=== PATIENT | male | born 1980 | race Caucasian/White ===

== ENCOUNTER 2025-02-28 18:43 | Inpatient (IN) | payer BC, OTHER ==
[~2025-02-28] VITALS: Ht 190.5 cm; Wt 107.2 kg
--- NOTE | 2025-02-28 19:26 | ED.PDOC ---
General HPI Comments 44 y/o M presents with c/o right testicular swelling and pain, urine retention, and lightheadedness. Patient reports history of right testicular cancer and receiving a partial orchidectomy by urologist, Alejandro Kaur MD, at around 1300, this afternoon. He then endorses on developing symptoms at around 1500 and was advised to come to the ED for admission. Patient denies having any hematuria, left testicular swelling or pain, dizziness, or further associated symptoms. Chief Complaint: Testicle Pain Time Seen by MD: 19:00 Primary Care Provider: UNKNOWN (Jirafe S-RISK) Reviewed notes: Nurses Notes, Medications, Allergies Allergies: Coded Allergies: NO KNOWN ALLERGIES (Unverified , 02/28/25) Home Meds Reported Medications Hydrocodone-Acetaminophen (Hydrocodone Bitartrate/AC 5-325 mg) 1 Tab Tab, 1 TAB PO, TAB 03/01/25 Meloxicam (Meloxicam) 7.5 Mg Tab, 1 TAB PO DAILY, #30 TAB 1 Refill 03/01/25 Information Source: Patient Mode of Arrival: Ambulatory Severity: Moderate Timing: Hours Duration: Since onset Prehospital treatment: None Onset: Other (post partial orchidectomy) Review of Systems: REVIEW OF SYSTEMS: No fever, no chills, or fatigue HEENT: No sore throat, no earache, no congestion, no neck pain. Cardiac: Lightheadedness. No chest pain. No palpitations. Lungs: No shortness of breath, no cough. GI: No nausea, no vomiting, no diarrhea, no constipation, no abdominal pain : Right testicular pain and swelling. Urine retention. No dysuria, frequency, or urgency. No hematuria. Musculoskeletal: No joint pain , no joint swelling, no extremity edema. Skin: No rash, no itching. Neuro: No headache, no dizziness, no weakness Vital Signs Vital Signs Date Time Temp Pulse Resp B/P (MAP) Pulse Ox O2 Delivery O2 Flow Rate FiO2 02/28/25 20:59 97 16 98/60 (73) 95 02/28/25 19:30 97.9 97.9 02/28/25 19:30 Room Air* 0 21 Physical Exam General: Awake, alert and oriented. No acute distress. Skin: Skin in warm, dry and intact. Appropriate color for ethnicity. HEENT: The head is normocephalic and atraumatic. Conjunctivae are clear without exudates or hemorrhage. Sclera is non-icteric. EOM are intact. No signs of nystagmus. Eyelids are normal in appearance without swelling or lesions. Oral mucosa is pink and moist Neck: The neck is supple with normal range of motion. No JVD. Cardiac: Heart rate and rhythm are normal. No murmurs, gallops, or rubs are auscultated. Respiratory: No signs of respiratory distress. Lung sounds are clear in all lobes bilaterally without rales, rhonchi, or wheezes. Abdominal: Abdomen is soft, non-tender without distention, guarding or rigidity. Bowel sounds are present and normoactive in all four quadrants. Genitourinary: Scrotum is enlarged, swollen, with hematoma. Extremities: Upper and lower extremities are atraumatic in appearance without deformity or edema. Neurological: The patient is awake, alert and oriented to person, place, and time with normal speech. Speech is clear. There is no facial asymmetry. Psychiatric: Appropriate mood and affect. Good judgement and insight. Past Medical History PAST MEDICAL HISTORY: Cancer (right testicular cancer ) Surgical History (Other): partial orchidectomy Family History Family History: Unknown Social History Smoker: Non-Smoker Alcohol: Rarely Drugs: Denies Drug Use Lives In: Home Was a procedure done? Was a procedure done?: No Differential Diagnosis Kidney stone (Female): N/A Kidney stone (Male): N/A Penile/Scrotal: Epidiymitis, Foreign Body, Phimosis, Hydrocele, Testicular Torsion, Urolithiasis, Urinary Retention, Other (Post-op complication ) Urinary Problem (Male): N/A Urinary Problem (Female): N/A X-Ray, Labs, Meds, VS Vital Signs Date Time Temp Pulse Resp B/P (MAP) Pulse Ox O2 Delivery O2 Flow Rate FiO2 02/28/25 20:59 97 16 98/60 (73) 95 02/28/25 20:24 95 16 98/60 02/28/25 19:54 97 16 142/118 02/28/25 19:30 97.9 97 16 142/118 (126) 97 97.9 02/28/25 19:30 Room Air* 0 21 02/28/25 19:03 97.9 113 19 100/62 (75) 95 97.9 Lab Test 02/28/25 19:20 Range/Units White Blood Count 21.9 H 4.4-10.8 10^3/uL Red Blood Count 4.35 L 4.5-5.90 10^6/uL Hemoglobin 13.2 L 13.5-17.5 g/dL Hematocrit 39.8 L 41.0-53.0 % Mean Corpuscular Volume 91.7 80.0-100.0 fL Mean Corpuscular Hemoglobin 30.3 28.0-32.0 pg Mean Corpuscular Hemoglobin Concent 33.1 32.0-36.0 g/dL Red Cell Distribution Width 12.8 11.8-14.3 % Platelet Count 338 140-450 10^3/uL Mean Platelet Volume 8.9 6.9-10.8 fL Neutrophils (%) (Auto) 78.6 37.0-80.0 % Lymphocytes (%) (Auto) 12.7 10.0-50.0 % Monocytes (%) (Auto) 7.5 0.0-12.0 % Eosinophils (%) (Auto) 1.0 0.0-7.0 % Basophils (%) (Auto) 0.2 0.0-2.0 % Neutrophils # (Auto) 17.2 H 1.6-8.6 10 ^3/uL Lymphocytes # (Auto) 2.8 0.4-5.4 10 ^3/uL Monocytes # (Auto) 1.7 H 0-1.3 10 ^3/uL Eosinophils # (Auto) 0.2 0-0.8 10 ^3/uL Basophils # (Auto) 0.1 0-0.2 10 ^3/uL Nucleated Red Blood Cells 0.0 % Sodium Level 141 136-145 mmol/L Potassium Level 4.0 3.5-5.1 mmol/L Chloride Level 107 98-107 mmol/L Carbon Dioxide Level 25 20-31 mmol/L Anion Gap 9 5-15 Blood Urea Nitrogen 22 9-23 mg/dL Creatinine 1.24 0.700-1.30 mg/dL Glomerular Filtration Rate Calc 73 >90 mL/min BUN/Creatinine Ratio 17.7 10.0-20.0 Serum Glucose 159 H 74-106 mg/dL Calcium Level 8.8 8.7-10.4 mg/dL Current Medications Medications (Trade) Dose Ordered Sig/Bee Route Start Time Stop Time Status Last Admin Morphine Sulfate 4 mg ONCE ONCE IV 02/28/25 19:15 02/28/25 19:16 DC 02/28/25 19:54 Ondansetron HCl (Zofran) 4 mg ONCE ONCE IV 02/28/25 19:15 02/28/25 19:16 DC 02/28/25 19:55 Sodium Chloride 1,000 ml @ 1,000 mls/hr Q1H ONCE IV 02/28/25 19:30 02/28/25 20:29 DC 02/28/25 19:39 Time of 1ST Reevaluation: 19:30 Reevaluation 1ST: Unchanged Patient Education/Counseling: Other (Need for admission ) Family Education/Counseling: No Family Present SEPSIS Sepsis Screen Physician Orders Urinalysis (02/28/25 19:07) Obtain Consent For: (02/28/25 20:26) Obtain Consent For Anesthesia (02/28/25 20:26) Oxygen By Face Mask (02/28/25 21:18) Cover Remover (02/28/25 21:18) Notify Anesth. For Changes: (02/28/25 21:18) Pulse Ox Assessment (02/28/25 21:18) Bear Hugger For Temp <94.5f (02/28/25 21:18) May Have Head Of Bed Up (02/28/25 21:18) Follow Iv With Surgeon Orders (02/28/25 21:18) Discharge To Room Per Criteria (02/28/25 21:18) Vital Signs Date Time Temp Pulse Resp B/P (MAP) Pulse Ox O2 Delivery O2 Flow Rate FiO2 02/28/25 20:59 97 16 98/60 (73) 95 02/28/25 20:24 95 16 98/60 02/28/25 19:54 97 16 142/118 02/28/25 19:30 97.9 97 16 142/118 (126) 97 97.9 02/28/25 19:30 Room Air* 0 21 02/28/25 19:03 97.9 113 19 100/62 (75) 95 97.9 Laboratory Tests Test 02/28/25 19:20 White Blood Count 21.9 10^3/uL (4.4-10.8) H Medications Medications Dose Ordered Sig/Bee Route Start Time Stop Time Status Last Admin Dose Admin Cefazolin Sodium 1 gm STK-MED ONCE .ROUTE 02/28/25 21:30 02/28/25 21:29 DC 02/28/25 22:09 Cefazolin Sodium/ Dextrose 50 ml @ ud STK-MED ONCE IV 02/28/25 21:28 02/28/25 21:26 DC 02/28/25 21:36 Lidocaine/ Epinephrine 20 ml STK-MED ONCE .ROUTE 02/28/25 21:01 02/28/25 20:59 DC 02/28/25 21:55 Morphine Sulfate 4 mg ONCE ONCE IV 02/28/25 19:15 02/28/25 19:16 DC 02/28/25 19:54 Ondansetron HCl 4 mg ONCE ONCE IV 02/28/25 19:15 02/28/25 19:16 DC 02/28/25 19:55 Sodium Chloride 1,000 ml @ 1,000 mls/hr Q1H ONCE IV 02/28/25 19:30 02/28/25 20:29 DC 02/28/25 19:39 Departure 1 Departure Time of Disposition: 20:34 Impression: Primary Impression: Postoperative complication Disposition: ADMITTED INPATIENT Condition: Stable Comments 44-year-old male with hematoma postop. Case was discussed with Dr. Kaur, plans to take patient to OR tonight. Extensive evaluation was performed in attempt to identify or rule out: (See differential diagnosis section) The following tests were ordered, and results were reviewed by me and discussed with patient: (See diagnostic results section) The following test were independently interpreted by me: N/A I reviewed and agreed with the following test results read by other providers: N/A I reviewed the following notes from the pt's past medical encounters: November 07, 2011 for left ankle bimalleolar fracture Additional information was gathered from interviewing the following independent historians: N/A Discussion of management or test interpretation with external physician/other qualified health home health care worker: Dr. Kaur Addressed an acute or chronic illness that poses a threat to life or bodily function: Expanding hematoma Decision regarding hospitalization or escalation of hospital level of care: Risk and benefits of admission for further treatment of patient's condition was considered. Due to patient's current clinical condition, high risk of decline and poor outcome if discharged and need for further inpatient management and monitoring, patient will be admitted to the hospital. Drug therapy requiring intensive monitoring for toxicity: N/A Parenteral controlled substances: IV morphine Decision regarding elective major surgery with identified patient or procedure risk factors: N/A Decision regarding emergency major surgery: N/A Decision not to resuscitate or to de-escalate care because of poor prognosis: N/A Diagnosis or treatment significantly limited by social determinants of health: N/A Critical Care Note Critical Care Time?: No Stability Stability form required: No Heart Score Heart Score: Heart Score Response (Comments) Value History N/A 0 EKG N/A 0 Age N/A 0 Risk Factors N/A 0 Troponin N/A 0 Total 0 I personally scribed for KELLY BALDERRAMA MD ([email or web address]) on 02/28/25 at 19:26. Electronically submitted by Yayo Lan ([email or web address]). I personally scribed for KELLY BALDERRAMA MD ([email or web address]) on 02/28/25 at 19:59. Electronically submitted by Yayo Lan ([email or web address]). KELLY BALDERRAMA MD Feb 28, 2025 19:26
[2025-02-28] MEDS: SODIUM CHLORIDE 0.9% 1,000 ML IV ONE (19:39)
[2025-02-28 19:43] LABS: Basophils # (auto) 0.1 10 ^3/uL (0-0.2); Basophils % (auto) 0.2 % (0.0-2.0); Eosinophils # (auto) 0.2 10 ^3/uL (0-0.8); Hematocrit 39.8 % (41.0-53.0); Hemoglobin 13.2 g/dL (13.5-17.5); Lymphocytes # (auto) 2.8 10 ^3/uL (0.4-5.4); Lymphocytes % (auto) 12.7 % (10.0-50.0); Mean Corpuscular Hemoglobin 30.3 pg (28.0-32.0); Mean Corpuscular Hgb Conc. 33.1 g/dL (32.0-36.0); Mean Corpuscular Volume 91.7 fL (80.0-100.0); Monocytes # (auto) 1.7 10 ^3/uL (0-1.3); Monocytes % (auto) 7.5 % (0.0-12.0); Neutrophils # (auto) 17.2 10 ^3/uL (1.6-8.6); Neutrophils % (auto) 78.6 % (37.0-80.0); Platelet Count (auto) 338 10^3/uL (140-450); Red Blood Cells 4.35 10^6/uL (4.5-5.90); Red Cell Distribution Width 12.8 % (11.8-14.3); White Blood Cell 21.9 10^3/uL (4.4-10.8)
[2025-02-28 19:45] LABS: Chloride 107 mmol/L (98-107); Sodium 141 mmol/L (136-145)
[2025-02-28 19:46] LABS: Anion Gap 9 (5-15); Calcium 8.8 mg/dL (8.7-10.4); Carbon Dioxide 25 mmol/L (20-31)
[2025-02-28 19:51] LABS: BUN/Creatinine Ratio 17.7 (10.0-20.0); Blood Urea Nitrogen 22 mg/dL (9-23)
[2025-02-28] MEDS: MORPHINE SULFATE INJ 2 MG/ml SYRG IV ONE (19:54)
[2025-02-28] MEDS: ONDANSETRON HCL 4 MG/2 ML VIAL IV ONE (19:55)
[2025-02-28 19:56] LABS: Glucose 159 mg/dL (74-106)
[2025-02-28] MEDS: BACITRACIN TOP OINT 1 UD PKG TOP ONE (21:01)
[2025-02-28] MEDS: SUCCINYLCHOLINE CHLORIDE 20 MG/ML 10ML VIAL IV ONE (21:01)
[2025-02-28] MEDS ORDERED: PROPOFOL 10 MG/ML 20 ML IV ONE (21:10)
[2025-02-28] MEDS ORDERED: SODIUM CHLORIDE LOCK 10 ML ONE (21:10)
[2025-02-28] MEDS ORDERED: ONDANSETRON HCL 4 MG/2 ML VIAL ONE (21:10)
[2025-02-28] MEDS ORDERED: KETAMINE 50mg/ML 1ml syringe ONE (21:10)
[2025-02-28] MEDS ORDERED: ROCURONIUM 10MG/ML 10ML VIAL IV ONE (21:10)
[2025-02-28] MEDS ORDERED: MIDAZOLAM HCL 2MG/2ML 2ml VIAL (1mg/ml) ONE (21:10)
[2025-02-28] MEDS ORDERED: fentaNYL CITRATE 100 MCG/2 ML VL ONE (21:10)
[2025-02-28] MEDS ORDERED: LIDOCAINE 1% INJ PF 5ML AMP ONE (21:10)
[2025-02-28] MEDS ORDERED: LIDOCAINE HCL 2% TOP JELLY 5ML TOP ONE (21:10)
--- NOTE | 2025-02-28 21:16 | DVHINCON2 ---
Date of service: Feb 28, 2025 Reason for Consultation Right scrotal hematoma History of Present Illness Patient underwent right radical orchiectomy earlier today at [facility] outpatient surgery. He went home approximately 1:00 pm and began to notice his scrotum was getting enlarged. By 6:00 p.m. the enlargement with so severe he had called the answering service. Patient was instructed to come into the emergency room at [facility] so that he may undergo surgical exploration with evacuation of hematoma and hemostasis tonight urgently. His labs and vitals are stable. Past Surgical History Right radical orchiectomy earlier today at [facility] [place], [place] Allergies: Coded Allergies: NO KNOWN ALLERGIES (Unverified , 02/28/25) Review of Systems Massive right scrotal edema/hematoma and swelling Vital Signs Vital Signs Date Time Temp Pulse Resp B/P (MAP) Pulse Ox O2 Delivery O2 Flow Rate FiO2 02/28/25 20:59 97 16 98/60 (73) 95 02/28/25 19:30 97.9 97.9 02/28/25 19:30 Room Air* 0 21 Physical Exam Massive right scrotal edema/hematoma and ecchymosis noted Labs/Diagnostic Data Labs Test 02/28/25 19:20 Range/Units White Blood Count 21.9 H 4.4-10.8 10^3/uL Red Blood Count 4.35 L 4.5-5.90 10^6/uL Hemoglobin 13.2 L 13.5-17.5 g/dL Hematocrit 39.8 L 41.0-53.0 % Mean Corpuscular Volume 91.7 80.0-100.0 fL Mean Corpuscular Hemoglobin 30.3 28.0-32.0 pg Mean Corpuscular Hemoglobin Concent 33.1 32.0-36.0 g/dL Red Cell Distribution Width 12.8 11.8-14.3 % Platelet Count 338 140-450 10^3/uL Mean Platelet Volume 8.9 6.9-10.8 fL Neutrophils (%) (Auto) 78.6 37.0-80.0 % Lymphocytes (%) (Auto) 12.7 10.0-50.0 % Monocytes (%) (Auto) 7.5 0.0-12.0 % Eosinophils (%) (Auto) 1.0 0.0-7.0 % Basophils (%) (Auto) 0.2 0.0-2.0 % Neutrophils # (Auto) 17.2 H 1.6-8.6 10 ^3/uL Lymphocytes # (Auto) 2.8 0.4-5.4 10 ^3/uL Monocytes # (Auto) 1.7 H 0-1.3 10 ^3/uL Eosinophils # (Auto) 0.2 0-0.8 10 ^3/uL Basophils # (Auto) 0.1 0-0.2 10 ^3/uL Nucleated Red Blood Cells 0.0 % Sodium Level 141 136-145 mmol/L Potassium Level 4.0 3.5-5.1 mmol/L Chloride Level 107 98-107 mmol/L Carbon Dioxide Level 25 20-31 mmol/L Anion Gap 9 5-15 Blood Urea Nitrogen 22 9-23 mg/dL Creatinine 1.24 0.700-1.30 mg/dL Glomerular Filtration Rate Calc 73 >90 mL/min BUN/Creatinine Ratio 17.7 10.0-20.0 Serum Glucose 159 H 74-106 mg/dL Calcium Level 8.8 8.7-10.4 mg/dL Assessment Right scrotal hematoma, surgical complication Plan/Recommendation Right scrotal exploration with hematoma evacuation and hemostasis Plan discussed with: Patient, Spouse DONNA VALLADARES MD Feb 28, 2025 21:16
[2025-02-28] MEDS ORDERED: MORPHINE SULFATE INJ 2 MG/ml SYRG IV PRN ×3 (21:30→23:00)
[2025-02-28] MEDS: KETOROLAC TROMETH 30 MG/ML 1ML VIAL IV ONE (21:30)
[2025-02-28] MEDS: METOCLOPRAMIDE HCL 5MG/ml INJ 2ml VIAL IV ONE (21:30)
[2025-02-28] MEDS ORDERED: HYDROmorphone HCL 2 MG/ML VL/or syr ONE (21:30)
[2025-02-28] MEDS ORDERED: HYDROmorphone HCL 2 MG/ML VL/or syr IV PRN ×2 (21:30)
[2025-02-28] MEDS ORDERED: MORPHINE SULFATE 4 MG/ML SYR/VIAL IV PRN (21:30)
[2025-02-28] MEDS: ceFAZolin 2 GM/D5W50ml 50 ML IV ONE (21:36)
[2025-02-28] MEDS ORDERED: NITROGLYCERIN 0.4 MG SL TAB SL PRN (21:45)
[2025-02-28] MEDS: LIDOCAINE W/ EPINEPHRINE 1% 20ML VIAL ONE (21:55)
[2025-02-28] MEDS: ceFAZolin 1GM VL ONE (22:09)
[2025-02-28 22:51] VITALS: PULSE 131; RESP 19; O2SAT 100
--- NOTE | 2025-02-28 23:03 | DVHNC2 ---
Procedure - OPERATIVE REPORT Pre-op. Diagnosis: large right scrotal hematoma status post right radical orchiectomy Post-op. Diagnosis: Same as pre-op diagnosis Operation: right scrotal exploration with hematoma evacuation and hemostasis with YUNIER drain placement Anesthesia: general by Dr. Melendez Indications: The patient is a 44-year-old male with right testicular mass. He underwent right radical orchiectomy at [facility] outpatient surgery earlier today. He presented to the ER with massive right hematoma and scrotal swelling, complication from earlier surgery. The indications, risks, alternatives and benefits of right scrotal exploration with hematoma evacuation and hemostasis I discussed with the patient and family. All questions were encouraged and answered and he elected to proceed Details of Procedure: Patient was taken to the operating room and underwent general anesthesia in the supine position. Area of the genitalia was widely prepped and draped in usual sterile manner. Gaona catheter was inserted. The right inguinal incision was opened by removing the kenneth and incising into the inguinal canal. The spermatic cord bundles were intact and there was no bleeding from the stump. Large blood clots were evacuated from the scrotum through the inguinal canal. A 2nd right herlinda scrotal incision was made to access the scrotal space. Irrigation with antibiotic solutionwas used to wash away the blood clots. a Guy-Solis d rain was placed and tip was exited through the dependent position of the scrotum. The inguinal incision was closed again in three layers with reapproximation of Louis's using chromic sutures. The skin was closed with kenneth The scrotal incision was also closed with 3-0 chromic sutures in interrupted manner. The Guy prep drain was placed to bulb suction. Patient was awakened and taken to recovery room in stable condition Specimens: large blood clots Complications: Findings: YUNIER drain was placed and placed to bulb suction Notes: This procedure was performed as a management for the complication of postope rative bleeding resulting in severe swelling of the scrotum due to hematoma formation. DONNA VALLADARES MD Feb 28, 2025 23:03
[2025-02-28 23:10] LABS: Basophils # (auto) 0.1 10 ^3/uL (0-0.2); Basophils % (auto) 0.4 % (0.0-2.0); Eosinophils # (auto) 0 10 ^3/uL (0-0.8); Eosinophils % (auto) 0.1 % (0.0-7.0); Hematocrit 37.2 % (41.0-53.0); Lymphocytes # (auto) 1.2 10 ^3/uL (0.4-5.4); Lymphocytes % (auto) 5.1 % (10.0-50.0); Mean Corpuscular Hgb Conc. 32.4 g/dL (32.0-36.0); Mean Corpuscular Volume 92.7 fL (80.0-100.0); Monocytes # (auto) 1.1 10 ^3/uL (0-1.3); Monocytes % (auto) 4.6 % (0.0-12.0); Neutrophils # (auto) 21.4 10 ^3/uL (1.6-8.6); Neutrophils % (auto) 89.8 % (37.0-80.0); Platelet Count (auto) 310 10^3/uL (140-450); Red Blood Cells 4.01 10^6/uL (4.5-5.90); Red Cell Distribution Width 12.6 % (11.8-14.3); White Blood Cell 23.8 10^3/uL (4.4-10.8)
[2025-02-28 23:15] VITALS: PULSE 112; RESP 15; O2SAT 95
[2025-02-28 23:58] VITALS: BP 99/65; PULSE 106; RESP 18; TEMP 99; O2SAT 94
[2025-03-01] VITALS (9 sets, daily range): BP systolic 99–116; BP diastolic 56–74; PULSE 86–108; RESP 14–20; TEMP 97.8–99.1; O2SAT 91–99
[2025-03-01] MEDS ORDERED: MELO7.5T7 PO (00:41)
[2025-03-01] MEDS ORDERED: HYDR-4902 PO (00:41)
[2025-03-01] MEDS: HYDROcodone-ACET 7.5/325MG TAB PO PRN ×2 (01:00→12:15)
[2025-03-01 06:38] LABS: Basophils # (auto) 0 10 ^3/uL (0-0.2); Basophils % (auto) 0.1 % (0.0-2.0); Eosinophils # (auto) 0 10 ^3/uL (0-0.8); Hematocrit 33.7 % (41.0-53.0); Hemoglobin 11.3 g/dL (13.5-17.5); Lymphocytes # (auto) 0.8 10 ^3/uL (0.4-5.4); Lymphocytes % (auto) 5.7 % (10.0-50.0); Mean Corpuscular Hemoglobin 30.6 pg (28.0-32.0); Mean Corpuscular Hgb Conc. 33.6 g/dL (32.0-36.0); Mean Corpuscular Volume 91.2 fL (80.0-100.0); Monocytes # (auto) 0.5 10 ^3/uL (0-1.3); Monocytes % (auto) 3.4 % (0.0-12.0); Neutrophils # (auto) 12.8 10 ^3/uL (1.6-8.6); Neutrophils % (auto) 90.8 % (37.0-80.0); Platelet Count (auto) 247 10^3/uL (140-450); Red Blood Cells 3.69 10^6/uL (4.5-5.90); Red Cell Distribution Width 12.7 % (11.8-14.3); White Blood Cell 14.1 10^3/uL (4.4-10.8)
[2025-03-01] MEDS: DOCUSATE SOD 100 MG CAP PO SCH (09:29)
[2025-03-01] MEDS: SODIUM CHLORIDE 0.9% 1,000 ML IV SCH (12:15)
--- NOTE | 2025-03-01 13:34 | DVHPN2 ---
Progress Note - Dictate Date Seen: Mar 01, 2025 Has the PT tested + for MRSA If YES, has PT been informed?: Yes Medical Necessity Reason Pt with a Central, PICC or Fol: Yes The following are medically ne: Gaona Catheter Medical Necessity Reason Postop day 1. Status post scrotal exploration with clot evacuation and hemostasis with YUNIER placement Subjective Tolerating the catheter and the drain well. He has no new complaints vital signs Vital Sign Date Time Temp Pulse Resp B/P (MAP) Pulse Ox O2 Delivery O2 Flow Rate FiO2 03/01/25 09:00 99.0 86 18 111/74 (86) 99 99.0 03/01/25 08:00 Room Air* 0 21 Total Intake and Output 02/28/25 02/28/25 03/01/25 15:00 23:00 07:00 Intake Total 1050 ml 236 ml Output Total 40 ml 1510 ml Balance 1010 ml -1274 ml medications Current Medications Medications Dose Ordered Sig/Bee Route Start Time Stop Time Status Last Admin Dose Admin Nitroglycerin 0.4 mg Q5MINP PRN SL 02/28/25 21:45 Morphine Sulfate 2 mg Q30M PRN IV 02/28/25 23:00 Docusate Sodium 100 mg BID PO 03/01/25 10:00 03/01/25 09:29 Sodium Chloride 1,000 ml @ 150 mls/hr Q6H40M IV 03/01/25 12:00 03/01/25 12:15 Acetaminophen/ Hydrocodone Bitart 1 tab Q4HPRN PRN PO 03/01/25 12:00 03/01/25 12:15 objective No acute distress Gaona in place with clear urine YUNIER output is slowing down to approximately 60 cc output every 3-4 hours laboratory and microbiology Laboratory Tests 03/01/25 05:03 02/28/25 19:20 Test 02/28/25 19:20 Range/Units Serum Glucose 159 H 74-106 mg/dL Problem List Large scrotal hematoma subsequent to right radical orchiectomy postop day 1. Assessment/Plan Continuous Guy-Solis drainage Continuous scrotal support Continue with Gaona catheter Keflex 500 mg p.o. t.i.d. for prophylaxis Plan discussed with: Patient, Spouse, Other DONNA VALLADARES MD Mar 01, 2025 13:34
--- NOTE | 2025-03-01 15:36 | DVHHP2 ---
Review of Systems Allergies: Coded Allergies: NO KNOWN ALLERGIES (Unverified , 02/28/25) Medications Current Medications Medications Dose Ordered Sig/Bee Route Start Time Stop Time Status Last Admin Dose Admin Nitroglycerin 0.4 mg Q5MINP PRN SL 02/28/25 21:45 Morphine Sulfate 2 mg Q30M PRN IV 02/28/25 23:00 Docusate Sodium 100 mg BID PO 03/01/25 10:00 03/01/25 09:29 100 MG Sodium Chloride 1,000 ml @ 150 mls/hr Q6H40M IV 03/01/25 12:00 03/01/25 12:15 150 MLS/HR Acetaminophen/ Hydrocodone Bitart 1 tab Q4HPRN PRN PO 03/01/25 12:00 03/01/25 12:15 1 TAB Cephalexin 500 mg Q6HR PO 03/01/25 18:00 Exam Vital Signs Vital Signs Date Time Temp Pulse Resp B/P (MAP) Pulse Ox O2 Delivery O2 Flow Rate FiO2 03/01/25 13:00 99.1 92 20 105/67 (80) 95 99.1 03/01/25 08:00 Room Air* 0 21 Labs/Xrays Labs Test 03/01/25 05:03 02/28/25 19:20 Range/Units White Blood Count 14.1 #H 4.4-10.8 10^3/uL Red Blood Count 3.69 L 4.5-5.90 10^6/uL Hemoglobin 11.3 L 13.5-17.5 g/dL Hematocrit 33.7 L 41.0-53.0 % Mean Corpuscular Volume 91.2 80.0-100.0 fL Mean Corpuscular Hemoglobin 30.6 28.0-32.0 pg Mean Corpuscular Hemoglobin Concent 33.6 32.0-36.0 g/dL Red Cell Distribution Width 12.7 11.8-14.3 % Platelet Count 247 140-450 10^3/uL Mean Platelet Volume 8.9 6.9-10.8 fL Neutrophils (%) (Auto) 90.8 H 37.0-80.0 % Lymphocytes (%) (Auto) 5.7 L 10.0-50.0 % Monocytes (%) (Auto) 3.4 0.0-12.0 % Eosinophils (%) (Auto) 0.0 0.0-7.0 % Basophils (%) (Auto) 0.1 0.0-2.0 % Neutrophils # (Auto) 12.8 H 1.6-8.6 10 ^3/uL Lymphocytes # (Auto) 0.8 0.4-5.4 10 ^3/uL Monocytes # (Auto) 0.5 0-1.3 10 ^3/uL Eosinophils # (Auto) 0 0-0.8 10 ^3/uL Basophils # (Auto) 0 0-0.2 10 ^3/uL Nucleated Red Blood Cells 0.0 % Sodium Level 141 136-145 mmol/L Potassium Level 4.0 3.5-5.1 mmol/L Chloride Level 107 98-107 mmol/L Carbon Dioxide Level 25 20-31 mmol/L Anion Gap 9 5-15 Blood Urea Nitrogen 22 9-23 mg/dL Creatinine 1.24 0.700-1.30 mg/dL Glomerular Filtration Rate Calc 73 >90 mL/min BUN/Creatinine Ratio 17.7 10.0-20.0 Serum Glucose 159 H 74-106 mg/dL Calcium Level 8.8 8.7-10.4 mg/dL Assessment/Plan Assessment/Plan see dictated note Plan discussed with: Patient Date of Service: Mar 01, 2025 Billing Provider: YONI ERIC MD Common Visit Codes: [id number] INP/OBS CARE (HIGH) YONI ERIC MD Mar 01, 2025 15:36
--- NOTE | 2025-03-01 15:45 | DVHHP ---
ADMIT DATE: 02/28/2025 HISTORY OF PRESENT ILLNESS: The patient is a 44-year-old gentleman who was admitted after he underwent surgery on the scrotal tumor. The patient subsequently noted increasing swelling in the right scrotum and he came back to the hospital for exploration and evacuation of hematoma. The patient at this time complained of mild pain. No shortness of breath. No nausea or vomiting. REVIEW OF SYSTEMS: Review of rest systems otherwise currently negative. PAST MEDICAL HISTORY: No significant illness in the past except for right-sided orchiectomy. MEDICATIONS: He takes no meds on a regular basis. ALLERGIES: No known drug allergies. SOCIAL HISTORY: Denies smoking or alcohol. FAMILY HISTORY: Negative. PHYSICAL EXAMINATION: GENERAL: The patient is awake and alert. VITAL SIGNS: Temperature 97.8, pulse 94 per minute, blood pressure 116/71. SHEENT: Unremarkable. There is no JVD. No pedal edema. LUNGS: Equal bilaterally. No added sounds. CARDIOVASCULAR: S1 and S2 is regular without murmurs. ABDOMEN: Soft. There is no organomegaly. NEUROLOGICAL: Nonfocal. MUSCULOSKELETAL: There is a drain in the right scrotum. ASSESSMENT AND PLAN: * Scrotal tumor, status post orchiectomy * Right scrotal hematoma, status post evacuation for which he will be placed on pain medications and oral antibiotics MD RAJIV Parrish/WILLIAMS TID: [id number] RECEIPT: [id number]
[2025-03-01] MEDS: CEPHALEXIN 250 MG CAP PO SCH (16:58)
[2025-03-01 20:15] LABS: Urine Bacteria None Seen /hpf (None Seen)
[2025-03-01 20:51] LABS: Urine Blood 3+ /uL (Negative); Urine Clarity Clear (Clear); Urine Color Light-Yellow (Yellow); Urine Protein, UAD Negative (Negative); Urine Specific Gravity 1.009 (1.001-1.035); Urine Squamous Epithelial Cell FEW /hpf (<5); Urine Urobilinogen Normal (Negative); Urine WBC 2 /HPF (0-3)
[2025-03-02] VITALS (8 sets, daily range): BP systolic 104–134; BP diastolic 59–83; PULSE 80–100; RESP 15–97; TEMP 98.1–99.2; O2SAT 94–99
[2025-03-02 06:02] LABS: Basophils # (auto) 0 10 ^3/uL (0-0.2); Basophils % (auto) 0.3 % (0.0-2.0); Eosinophils # (auto) 0.1 10 ^3/uL (0-0.8); Eosinophils % (auto) 0.9 % (0.0-7.0); Hematocrit 25.7 % (41.0-53.0); Hemoglobin 8.7 g/dL (13.5-17.5); Lymphocytes % (auto) 24.8 % (10.0-50.0); Mean Corpuscular Hemoglobin 30.8 pg (28.0-32.0); Mean Corpuscular Hgb Conc. 33.7 g/dL (32.0-36.0); Mean Corpuscular Volume 91.5 fL (80.0-100.0); Monocytes % (auto) 8.3 % (0.0-12.0); Neutrophils % (auto) 65.7 % (37.0-80.0); Platelet Count (auto) 212 10^3/uL (140-450); Red Blood Cells 2.81 10^6/uL (4.5-5.90); Red Cell Distribution Width 12.9 % (11.8-14.3); White Blood Cell 12.1 10^3/uL (4.4-10.8)
[2025-03-02 06:17] LABS: Potassium 4.3 mmol/L (3.5-5.1); Sodium 143 mmol/L (136-145)
[2025-03-02 06:18] LABS: Anion Gap 7 (5-15); Carbon Dioxide 26 mmol/L (20-31)
[2025-03-02 06:23] LABS: BUN/Creatinine Ratio 17.2 (10.0-20.0); Blood Urea Nitrogen 15 mg/dL (9-23); Calcium 8.1 mg/dL (8.7-10.4); Chloride 110 mmol/L (98-107); Glucose 106 mg/dL (74-106)
--- NOTE | 2025-03-02 09:59 | DVHPN2 ---
Progress Note - Dictate Date Seen: Mar 02, 2025 Has the PT tested + for MRSA If YES, has PT been informed?: Yes Medical Necessity Reason Pt with a Central, PICC or Fol: Yes The following are medically ne: Gaona Catheter Medical Necessity Reason Patient continues to require hospitalization status post scrotal hematoma evacuation and YUNIER drain placement following his right radical orchiectomy. Subjective No new complaints vital signs Vital Sign Date Time Temp Pulse Resp B/P (MAP) Pulse Ox O2 Delivery O2 Flow Rate FiO2 03/02/25 09:00 98.2 80 18 134/81 (98) 97 98.2 03/01/25 20:00 Room Air* 0 21 Total Intake and Output 03/01/25 03/01/25 03/02/25 15:00 23:00 07:00 Intake Total 700 ml 300 ml Output Total 910 ml 1375 ml Balance -210 ml -1075 ml medications Current Medications Medications Dose Ordered Sig/Bee Route Start Time Stop Time Status Last Admin Dose Admin Nitroglycerin 0.4 mg Q5MINP PRN SL 02/28/25 21:45 Morphine Sulfate 2 mg Q30M PRN IV 02/28/25 23:00 Docusate Sodium 100 mg BID PO 03/01/25 10:00 03/02/25 09:45 100 MG Sodium Chloride 1,000 ml @ 150 mls/hr Q6H40M IV 03/01/25 12:00 03/02/25 05:15 150 MLS/HR Acetaminophen/ Hydrocodone Bitart 1 tab Q4HPRN PRN PO 03/01/25 12:00 03/02/25 06:42 1 TAB Cephalexin 500 mg Q6HR PO 03/01/25 18:00 03/02/25 05:15 500 MG objective No acute distress Gaona in place with clear urine YUNIER output is slowing down to approximately 60 cc output every shift laboratory and microbiology Laboratory Tests 03/02/25 05:29 Test 03/02/25 05:29 Range/Units Serum Glucose 106 74-106 mg/dL Problem List Large scrotal hematoma subsequent to right radical orchiectomy postop day 2 Anemia Hemoglobin is down to 8.7- may require transfusion. Assessment/Plan Continuous Guy-Solis drainage Continuous scrotal support remove Gaona catheter Keflex 500 mg p.o. t.i.d. for prophylaxis Plan discussed with: Patient, Other DONNA VALLADARES MD Mar 02, 2025 09:59
--- NOTE | 2025-03-02 13:33 | DVHPN2 ---
Subjective denies any pain/swelling is better and decreasing Changes from previous H/P or p: No Changes Objective Vitals Vital Signs Date Time Temp Pulse Resp B/P (MAP) Pulse Ox O2 Delivery O2 Flow Rate FiO2 03/02/25 09:00 98.2 80 18 134/81 (98) 97 98.2 03/02/25 08:00 Room Air* 0 21 Intake/Output Intake and Output 03/02/25 07:00 Intake Total 1000 ml Output Total 2285 ml Balance -1285 ml Intake Oral 1000 ml Output Urine Total 2000 ml Drainage Total 285 ml General Appearance: Alert, Oriented X3, Cooperative, No acute distress Lungs: Clear to auscultation Cardiovascular: Regular rate, Normal S1, Normal S2 Abdomen: Normal bowel sounds, Soft, No tenderness, No hepatospenomegaly Musculoskeletal: Normal sensory function, Normal motor function Neuro: Normal gait, Normal speech, Strength at 5/5 X4 ext Psych/Mental Status: Mental status NL, Mood NL Medications Current Medications Medications Dose Ordered Sig/Bee Route Start Time Stop Time Status Last Admin Dose Admin Nitroglycerin 0.4 mg Q5MINP PRN SL 02/28/25 21:45 Morphine Sulfate 2 mg Q30M PRN IV 02/28/25 23:00 Docusate Sodium 100 mg BID PO 03/01/25 10:00 03/02/25 09:45 100 MG Sodium Chloride 1,000 ml @ 150 mls/hr Q6H40M IV 03/01/25 12:00 03/02/25 05:15 150 MLS/HR Acetaminophen/ Hydrocodone Bitart 1 tab Q4HPRN PRN PO 03/01/25 12:00 03/02/25 10:56 1 TAB Cephalexin 500 mg Q6HR PO 03/01/25 18:00 03/02/25 11:59 500 MG Laboratory Results Laboratory Tests 03/02/25 05:29 Chemistry Test 03/02/25 05:29 Calcium Level 8.1 mg/dL (8.7-10.4) L Urinalysis Test 03/01/25 20:06 Urine Color Light-yellow (Yellow) Urine Clarity Clear (Clear) Urine pH 6.0 (5.0-9.0) Urine Specific [place] 1.009 (1.001-1.035) Urine Protein Negative (Negative) Urine Ketones Negative (Negative) Urine Blood 3+ /uL (Negative) H Urine Nitrite Negative (Negative) Urine Bilirubin Negative (Negative) Urine Urobilinogen Normal mg/dL (Negative) Urine Leukocyte Esterase Negative /uL (Negative) Urine RBC 5 /hpf (0 - 3) Urine Microscopic WBC 2 /HPF (0-3) Urine Squamous Epithelial Cells Few /hpf (<5) Urine Bacteria None seen /hpf (None Seen) Urine Glucose Normal mg/dL (Normal) Assessment/Plan Assessment/Plan s/p rt orchiectemy for testicular cancer- per patient/ statement- no path report in chart scrotal hematoma from post op bleed anemia expected from above monitor and transfuse if < 7.0 ambulatory status Plan discussed with: Patient, Spouse Date of Service: Mar 02, 2025 Billing Provider: GARRETT LEONE MD Common Visit Codes: [id number] INP/OBS CARE(MOD) GARRETT LEONE MD Mar 02, 2025 13:33
[2025-03-02 16:58] LABS: Basophils # (auto) 0.1 10 ^3/uL (0-0.2); Basophils % (auto) 0.5 % (0.0-2.0); Eosinophils # (auto) 0.1 10 ^3/uL (0-0.8); Eosinophils % (auto) 1.1 % (0.0-7.0); Hematocrit 27.7 % (41.0-53.0); Hemoglobin 9.3 g/dL (13.5-17.5); Lymphocytes # (auto) 2.9 10 ^3/uL (0.4-5.4); Lymphocytes % (auto) 24.4 % (10.0-50.0); Mean Corpuscular Hemoglobin 30.7 pg (28.0-32.0); Mean Corpuscular Hgb Conc. 33.5 g/dL (32.0-36.0); Mean Corpuscular Volume 91.6 fL (80.0-100.0); Monocytes # (auto) 1.2 10 ^3/uL (0-1.3); Monocytes % (auto) 9.8 % (0.0-12.0); Neutrophils # (auto) 7.7 10 ^3/uL (1.6-8.6); Neutrophils % (auto) 64.2 % (37.0-80.0); Nucleated Red Blood Cells % 0.1 %; Platelet Count (auto) 238 10^3/uL (140-450); Red Blood Cells 3.03 10^6/uL (4.5-5.90); Red Cell Distribution Width 12.9 % (11.8-14.3); White Blood Cell 12.1 10^3/uL (4.4-10.8)
[2025-03-02 17:14] LABS: INR 0.96 (0.9-1.15); Prothrombin Time 10.2 sec (9.3-11.8)
[2025-03-03 05:15] VITALS: BP 132/88; PULSE 85; RESP 16; TEMP 97.9; O2SAT 96
[2025-03-03 06:34] LABS: Basophils # (auto) 0.1 10 ^3/uL (0-0.2); Basophils % (auto) 0.4 % (0.0-2.0); Eosinophils # (auto) 0.2 10 ^3/uL (0-0.8); Eosinophils % (auto) 1.8 % (0.0-7.0); Hematocrit 31.4 % (41.0-53.0); Hemoglobin 10.3 g/dL (13.5-17.5); Lymphocytes # (auto) 2.8 10 ^3/uL (0.4-5.4); Lymphocytes % (auto) 22.7 % (10.0-50.0); Mean Corpuscular Hgb Conc. 32.8 g/dL (32.0-36.0); Mean Corpuscular Volume 91.6 fL (80.0-100.0); Monocytes % (auto) 7.7 % (0.0-12.0); Neutrophils # (auto) 8.4 10 ^3/uL (1.6-8.6); Neutrophils % (auto) 67.4 % (37.0-80.0); Platelet Count (auto) 264 10^3/uL (140-450); Red Blood Cells 3.43 10^6/uL (4.5-5.90); Red Cell Distribution Width 12.7 % (11.8-14.3); White Blood Cell 12.5 10^3/uL (4.4-10.8)
[2025-03-03 06:42] LABS: Anion Gap 8 (5-15); Carbon Dioxide 28 mmol/L (20-31); Potassium 4.3 mmol/L (3.5-5.1); Sodium 143 mmol/L (136-145)
[2025-03-03 06:43] LABS: Calcium 9.7 mg/dL (8.7-10.4)
[2025-03-03 06:48] LABS: BUN/Creatinine Ratio 14.9 (10.0-20.0); Blood Urea Nitrogen 14 mg/dL (9-23); Glucose 99 mg/dL (74-106)
[2025-03-03 06:56] LABS: Chloride 107 mmol/L (98-107)
[2025-03-03 08:00] VITALS: PULSE 76; RESP 16; O2SAT 98
[2025-03-03 09:00] VITALS: BP 137/86; PULSE 76; RESP 77; TEMP 98.5; O2SAT 96
[2025-03-03] MEDS ORDERED: CEPH250C PO (12:09)
[2025-03-03] MEDS ORDERED: DOCU-265 PO (12:09)
[2025-03-03] MEDS ORDERED: HYDR-4902 PO (12:09)
--- NOTE | 2025-03-03 12:27 | DVHDS2 ---
Discharge Summary Date of Admission Feb 28, 2025 at 21:43 Date of Discharge: Mar 03, 2025 Admitting Diagnosis scrotal swelling /hematoma- s/p recent orchiectomy Wounds: scrotal wound/drainage tibe Labs/Diagnostic Data: Laboratory Results Test 03/03/25 06:04 03/02/25 16:44 03/01/25 20:06 White Blood Count 12.5 10^3/uL (4.4-10.8) Red Blood Count 3.43 10^6/uL (4.5-5.90) Hemoglobin 10.3 g/dL (13.5-17.5) Hematocrit 31.4 % (41.0-53.0) Mean Corpuscular Volume 91.6 fL (80.0-100.0) Mean Corpuscular Hemoglobin 30.0 pg (28.0-32.0) Mean Corpuscular Hemoglobin Concent 32.8 g/dL (32.0-36.0) Red Cell Distribution Width 12.7 % (11.8-14.3) Platelet Count 264 10^3/uL (140-450) Mean Platelet Volume 8.4 fL (6.9-10.8) Neutrophils (%) (Auto) 67.4 % (37.0-80.0) Lymphocytes (%) (Auto) 22.7 % (10.0-50.0) Monocytes (%) (Auto) 7.7 % (0.0-12.0) Eosinophils (%) (Auto) 1.8 % (0.0-7.0) Basophils (%) (Auto) 0.4 % (0.0-2.0) Neutrophils # (Auto) 8.4 10 ^3/uL (1.6-8.6) Lymphocytes # (Auto) 2.8 10 ^3/uL (0.4-5.4) Monocytes # (Auto) 1.0 10 ^3/uL (0-1.3) Eosinophils # (Auto) 0.2 10 ^3/uL (0-0.8) Basophils # (Auto) 0.1 10 ^3/uL (0-0.2) Nucleated Red Blood Cells 0.0 % Sodium Level 143 mmol/L (136-145) Potassium Level 4.3 mmol/L (3.5-5.1) Chloride Level 107 mmol/L (98-107) Carbon Dioxide Level 28 mmol/L (20-31) Anion Gap 8 (5-15) Blood Urea Nitrogen 14 mg/dL (9-23) Creatinine 0.94 mg/dL (0.700-1.30) Glomerular Filtration Rate Calc 102 mL/min (>90) BUN/Creatinine Ratio 14.9 (10.0-20.0) Serum Glucose 99 mg/dL (74-106) Calcium Level 9.7 mg/dL (8.7-10.4) Prothrombin Time 10.2 sec (9.3-11.8) Prothrombin Time INR 0.96 (0.9-1.15) Urine Color Light-yellow (Yellow) Urine Clarity Clear (Clear) Urine pH 6.0 (5.0-9.0) Urine Specific [place] 1.009 (1.001-1.035) Urine Protein Negative (Negative) Urine Ketones Negative (Negative) Urine Blood 3+ /uL (Negative) Urine Nitrite Negative (Negative) Urine Bilirubin Negative (Negative) Urine Urobilinogen Normal mg/dL (Negative) Urine Leukocyte Esterase Negative /uL (Negative) Urine RBC 5 /hpf (0 - 3) Urine Microscopic WBC 2 /HPF (0-3) Urine Squamous Epithelial Cells Few /hpf (<5) Urine Bacteria None seen /hpf (None Seen) Urine Glucose Normal mg/dL (Normal) Other Laboratory Tests 03/03/25 06:04 Brief Hx & Hospital Course: pt had orchictomy for testicular cancer and later in the day noticed swelling and pain in scrotum- was admitted and had drainage of hematoma/blood by urology/was monitored and hb is stable-pt was discharged home in stable condition Consults/Reason for consult urology Operations or Procedures drainage of scrotal hematoma Condition at Discharge: Fair Final Diagnosis/Problems List scrotal hematoma s/p drainage- tube in place rt urchiectome for testicular mass/cancer final pathology pending blood loss anemia- from scrotal hematoma-stable Discharge Disposition: Home SNF Discharge Will this Physician continue t: No Discharge Instruct/Medications Diet: Regular Activity: Light activity Activity comment: light activity-ambulate around the house up in chair Follow Up/Referral: dr.samual cuello on wednesday03/05/25 on drainage tube/final pathology results pcp(has own pcp thru [facility]) in 10-14 days on anemia/ Medications: cephalexin for 5 more days ferrous sulphate 325 mg once daily for anemia colace 100 mg twice daily if needed for constipation Discharge Statement: "Patient was advised to return to the ER or call 911 if any headaches, dizziness, shortness of breath, chest pain, abdominal pain, bleeding, fevers, or worsening of medical condition. Patient was counseled about treatment plan, medications, possible side effects, patientverbalized understanding. All questions were answered to the best of my ability. This discharge took greater then 30 minutes in planning, reviewing documentation, counseling the patient, and discussing with other team members." DME: Diagnosis: nil ASSESSMENT ASSESSMENT Assessment scrotal hematoma s/p drainage- tube in place rt urchiectome for testicular mass/cancer final pathology pending blood loss anemia- from scrotal hematoma-stable Date of Service: Mar 03, 2025 Billing Provider: GARRETT LEONE MD Common Visit Codes: [id number] DISCH DAY >30min GARRETT LEONE MD Mar 03, 2025 12:27
[2025-03-03 12:38] VITALS: BP 146/90; PULSE 82; RESP 19; TEMP 98.6; O2SAT 97
--- NOTE | 2025-03-03 12:42 | DVHPN2 ---
Progress Note - Dictate Date Seen: Mar 03, 2025 Has the PT tested + for MRSA If YES, has PT been informed?: Yes Medical Necessity Reason Pt with a Central, PICC or Fol: Yes Medical Necessity Reason POD#3 s/p scrotal hematoma evacuation following radical orchiectomy (R) Subjective Ready for discharge vital signs Vital Sign Date Time Temp Pulse Resp B/P (MAP) Pulse Ox O2 Delivery O2 Flow Rate FiO2 03/03/25 09:00 98.5 76 77 137/86 (103) 96 98.5 03/03/25 08:00 Room Air* 0 21 Total Intake and Output 03/02/25 03/02/25 03/03/25 15:00 23:00 07:00 Intake Total 800 ml 700 ml Output Total 1905 ml 800 ml Balance -1105 ml -100 ml medications Current Medications Medications Dose Ordered Sig/Bee Route Start Time Stop Time Status Last Admin Dose Admin Nitroglycerin 0.4 mg Q5MINP PRN SL 02/28/25 21:45 Morphine Sulfate 2 mg Q30M PRN IV 02/28/25 23:00 Docusate Sodium 100 mg BID PO 03/01/25 10:00 03/03/25 09:34 100 MG Sodium Chloride 1,000 ml @ 150 mls/hr Q6H40M IV 03/01/25 12:00 03/03/25 02:59 150 MLS/HR Acetaminophen/ Hydrocodone Bitart 1 tab Q4HPRN PRN PO 03/01/25 12:00 03/03/25 02:59 1 TAB Cephalexin 500 mg Q6HR PO 03/01/25 18:00 03/03/25 05:57 500 MG objective YUNIER output is slowing down laboratory and microbiology Laboratory Tests 03/03/25 06:04 Test 03/03/25 06:04 Range/Units Serum Glucose 99 74-106 mg/dL Problem List Large scrotal hematoma subsequent to right radical orchiectomy postop day 3 H/H stable Assessment/Plan Continuous Guy-Solis drainage Continuous scrotal support Keflex 500 mg p.o. t.i.d. for prophylaxis Stable for discharge Will follow up in clinic on Wednesday for drain removal if output nil Plan discussed with: Patient, Spouse, Other DONNA VALLADARES MD Mar 03, 2025 12:42
== END 2025-03-03 14:00 | disposition home or self-care (01) | DRG 730 ==
LOC: ER 18:47 → OVERFLOW 21:43 → EAST 23:45
PROVIDERS: ADMIT Internal Medicine; ATTEND Internal Medicine
PROC: 0V9500Z Drainage of Scrotum with Drainage Device, Open Approach (ICD-10-PCS; 2025-02-28)
PROC: 0VJ80ZZ Inspection of Scrotum and Tunica Vaginalis, Open Approach (ICD-10-PCS; principal; 2025-02-28 21:33)
DX: S30.22XA Contusion of scrotum and testes, initial encounter (principal); D50.0 Iron deficiency anemia secondary to blood loss (chronic); N50.89 Other specified disorders of the male genital organs; Z85.47 Personal history of malignant neoplasm of testis; Z90.79 Acquired absence of other genital organ(s); X58.XXXA Exposure to other specified factors, initial encounter; Y93.89 Activity, other specified; Y92.89 Other specified places as the place of occurrence of the external cause; Y99.8 Other external cause status
CPT/HCPCS: 36415; 80048; 81001; 85025; 85610; 86850; 86900; 86901; 96361; 96374; G0378; J0330; J0690; J2250; J2405; J2704